=== PATIENT | female | born 1935 | race Caucasian/White ===

== ENCOUNTER 2018-05-27 01:55 | Observation (INO) ==
[2018-05-27] MEDS ORDERED: ASPIRIN ONE (02:10)
--- NOTE | 2018-05-27 02:50 | PROVIDER DOCUMENTATION ---
HPI-Chest Pain - General Chief Complaint: Chest Pain Stated Complaint: CHEST PAIN/LEFT ARM PAIN/SOB Time Seen by Provider: 05/27/18 01:58 Source: patient Allergies/Adverse Reactions: Patient Allergies Allergy/AdvReac Type Severity Reaction Status Date / Time No Known Allergies Allergy Verified 05/20/18 12:19 - History of Present Illness-CP Nature of Presenting Problem: Patient is a 83 year old white female with history of emphysema complaining of left sided chest pressure and left arm pain after awakening from sleep at 1230 am. Currently chest pain free but continues to have left arm discomfort. Followed by Dr. Sims Chest Pain Radiation: reports: other (left arm) Quality of Pain: reports: pressure Severity in ED: moderate Onset/Duration: abrupt Timing: gone now Context/Activities at Onset: reports: none, rest, sleep Modifying Factors: improves with: nothing Associated Symptoms: reports: shortness of breath Nitro Today/Relief: no nitro taken today Aspirin Treatment Today: no aspirin today Prior Chest Pain/Cardiac Workup: reports: non-cardiac Similar Symptoms Previously?: Yes Recently Seen Here or By Another Healthcare Provider: No Review of Systems - Adult - REVIEW OF SYSTEMS - ADULT Constitutional: denies: chills, fever Eyes: reports: no symptoms reported Ears, Nose, Mouth & Throat: reports: no symptoms reported Cardiovascular: reports: see HPI, chest pain Respiratory: reports: no symptoms reported Gastrointestinal: reports: no symptoms reported Musculoskeletal: reports: no symptoms reported Integumentary: reports: no symptoms reported Neurological: reports: no symptoms reported Endocrine: reports: no symptoms reported Hematologic/Lymphatic: reports: no symptoms reported Allergic/Immunologic: reports: no symptoms reported All Other Systems: Reviewed and Negative Past History - Adult - PAST MEDICAL HISTORY-ADULT Review of Records: reports: Old Records Reviewed, Nursing Assessment Review, Medications Reviewed, Social history reviewed & non-contributory. Major Childhood Illnesses: reports: denies history Cardiovascular: reports: hyperlipidemia Respiratory: reports: denies history Gastrointestinal: reports: denies history Obstetrical/Gynecological: reports: denies history Genitourinary: reports: denies history Musculoskeletal: reports: denies history Neurological: reports: denies history Psychiatric: reports: denies history Endocrine/Immune: reports: thyroid disorder Other Conditions: reports: denies history - PRIOR SURGERIES/PROCEDURES Surgical/Procedure History: reports: orthopedic (extremity), joint replacement (Right hip) - FAMILY HISTORY Family History: reviewed, not pertinent Physical Exam-General - CONSTITUTIONAL General Appearance: alert, no apparent distress, other (nondiaphoretic) - EYES Eyes: other (clear) - HEAD, EARS, NOSE, MOUTH & THROAT HENMT: normocephalic/atraumatic, moist mucous membranes - NECK Neck: non-tender, full range of motion, supple - RESPIRATORY Respiratory: chest non-tender, lungs clear, normal breath sounds - CARDIOVASCULAR Cardiovascular: regular rate, rhythm - GASTROINTESTINAL (ABDOMEN) Abdominal Exam: normal bowel sounds, non tender, soft - LYMPHATIC Lymphatic: no adenopathy - MUSCULOSKELETAL Back Exam: normal inspection, no CVA tenderness Extremity: normal range of motion, non-tender Peripheral Pulses: radial (R): 2+, radial (L): 2+ - SKIN Integumentary: normal color, normal turgor - PSYCHIATRIC Psych/Mental Status: normal thought content, anxious - HEART Score HEART Score: History: Slightly Suspicious HEART Score: ECG: Normal HEART Score: Age: > or = 65 Years HEART Score: Risk Factors for Atherosclerotic Disease: > or = 3 Risk Factors or History of Atherosclerotic Disease HEART Score: Troponin: < or = Normal Limit Total HEART Score:: 4 Progress - PLAN OF CARE/RESULTS Progress/Plan/Lab Results: Vital Signs - 8 hr 05/27/18 02:05 05/27/18 02:07 05/27/18 02:10 Temperature Pulse Rate Respiratory Rate Blood Pressure 112/63 O2 Sat by Pulse Oximetry 94 L 96 96 05/27/18 02:14 Temperature 98.2 F Pulse Rate 62 Respiratory Rate 20 Blood Pressure 112/63 O2 Sat by Pulse Oximetry 95 Laboratory Results - last 24 hr 05/27/18 05/27/18 05/27/18 02:05 02:05 02:05 WBC 5.59 RBC 4.33 Hgb 12.3 Hct 37.9 MCV 87.5 MCH 28.4 MCHC 32.5 L RDW Std Deviation 14.2 Plt Count 185 MPV 10.7 H Immature Gran % (Auto) 0.0 Neut % (Auto) 41.5 L Lymph % (Auto) 42.8 Howell % (Auto) 8.4 Eos % (Auto) 6.4 Baso % (Auto) 0.9 H Immature Gran # (Auto) 0.00 Neut # (Auto) 2.32 Lymph # (Auto) 2.39 Howell # (Auto) 0.47 Eos # (Auto) 0.36 Baso # (Auto) 0.05 Sodium 144 Potassium 3.9 Chloride 106 Carbon Dioxide 27 Anion Gap 11 BUN 19 Creatinine 0.6 Estimated GFR/1.73 m2 > 60 BUN/Creatinine Ratio 32 Glucose 89 Calculated Osmolality 289 Calcium 9.1 Creatine Kinase 127 Troponin T < 0.010 05/27/18 05/27/18 05:12 05:12 WBC RBC Hgb Hct MCV MCH MCHC RDW Std Deviation Plt Count MPV Immature Gran % (Auto) Neut % (Auto) Lymph % (Auto) Howell % (Auto) Eos % (Auto) Baso % (Auto) Immature Gran # (Auto) Neut # (Auto) Lymph # (Auto) Howell # (Auto) Eos # (Auto) Baso # (Auto) Sodium Potassium Chloride Carbon Dioxide Anion Gap BUN Creatinine Estimated GFR/1.73 m2 BUN/Creatinine Ratio Glucose Calculated Osmolality Calcium Creatine Kinase 109 Troponin T < 0.010 Orders Category Date Time Status Admit - [facility] Routine AdmDCTranf 05/27/18 07:36 Active Cardiac Monitoring DIRECTED Care 05/27/18 02:08 Active Notify MD if DIRECTED Care 05/27/18 07:36 Active Nursing- MD Consult Request ROUTINE Care 05/27/18 06:05 Active Nursing- MD Consult Request ROUTINE Care 05/27/18 06:08 Active Saline Loc DIRECTED Care 05/27/18 07:36 Active Update & Confirm Home Medicati ROUTINE Care 05/27/18 07:35 Active Vital Signs Order Q 4-HR ASSESS Care 05/27/18 07:36 Active Z-Document. for Tele Applied ORDERED Care 05/27/18 07:36 Active Physician/Provider Consults Routine Cons 05/27/18 06:08 Ordered NPO Diet 05/27/18 07:34 Active CHEST-PORTABLE [RAD] Stat Exams 05/27/18 02:05 Completed BMP [BASIC METABOLIC PANEL] [CHEM] Stat Lab 05/27/18 02:05 Completed CBC WITH ELECTRONIC DIFF [HEME] Stat Lab 05/27/18 02:05 Completed CK PROFILE [SP CHEM] Q8HR Lab 05/27/18 13:00 Uncollected CK PROFILE [SP CHEM] Q8HR Lab 05/27/18 21:00 Uncollected CK PROFILE [SP CHEM] Stat Lab 05/27/18 02:05 Completed CK PROFILE [SP CHEM] Stat Lab 05/27/18 05:12 Completed TROPONIN T Q8HR Lab 05/27/18 13:00 Uncollected TROPONIN T Q8HR Lab 05/27/18 21:00 Uncollected TROPONIN T Stat Lab 05/27/18 02:05 Completed TROPONIN T Stat Lab 05/27/18 05:12 Completed Aspirin Med 05/27/18 02:10 Discontinued 325 mg .ROUTE .STK-MED ONE Aspirin Med 05/27/18 04:04 Discontinued 325 mg PO NOW ONE Oxygen Device Routine Oth 05/27/18 07:36 Active Telemetry [OM.EQ] Routine Oth 05/27/18 07:36 Active EKG [EKG] Stat Ther 05/27/18 01:58 Draft EKG [EKG] Stat Ther 05/27/18 06:03 Draft Transfer/Admit Order [TRANSFER] Routine Transfer 05/27/18 07:33 Ordered paged hospitalist, Dr. Lyle, at 0615 Result Diagrams: 05/27/18 02:05 05/27/18 02:05 - REASSESSMENT Reassessment #1 Time Reassessed: 06:00 Status: unchanged Reassessment Comment: continues to have left arm pain, repeat EKG ordered, paged general cargo clerk on Reassessment #2 Time Reassessed: 08:07 Status: other (I did not see this patient. Hospitalist Romeo SELLERS saw this patient and wrote orders before I had a chance to evaluate her) - EKG 1 Time of EKG reading by physician:: 02:05 EKG Read and Signed by:: David Holly Rate: 62 Rhythm: NSR [place]: normal [place] Interval: normal Comments: no STEMI 2 Time of EKG reading by physician:: 06:15 EKG Read and Signed by:: David Holly Rate: 57 Rhythm: sinus britt Prior EKG Comparison: unchanged from prior - CONSULTS/PCP/HOSPITALIST Notification #1 *Consult/PCP/Hospitalist*: Dr. Sims, general cargo clerk Time Discussed: 06:15 Reason/Comments: recommend observation and stress test Consult Disposition: Admit #2 Consult: Emperatriz Lyle Time Discussed: 06:30 Reason/Comments: request that we give report to oncoming hospitalist - CHANGE OF SHIFT REPORT (ED Provider) 1 Report Given and Care Transferred to:: Dr. Hutton Time of Transfer: 07:00 Items Pending: Physician Consult/Arrival (contact hospitalist coming on for day shift for admission) Departure - Departure Date of Disposition Decision: 05/27/18 Time of Disposition Decision: 08:07 DIAGNOSIS: Chest pain Qualifiers: Chest pain type: unspecified Qualified Code(s): R07.9 - Chest pain, unspecified Disposition: ADMITTED INPATIENT 09 Certified Medical Emergency: Emergent Condition: Stable Referrals and Follow-Ups: Kaleb Mckenzie MD [Primary Care Provider] - - Critical Care Note This patient required my direct & personal management of CC.: No Attestation - Physician/ REFUGIO Attestation Patient care was provided by Advanced Practice Provider:: No The physician spent face to face time with patient:: Yes Advanced Practice Provider documentation review:: Supervising physician onsite and consulted in the evaluation and care of this patient. The physician did have a face to face encounter with the patient.
[2018-05-27 03:42] LABS: BASO# 0.05 X1000 (0.0-0.2); BASO% 0.9 % (0.0-0.8); EOS# 0.36 X1000 (0.0-0.7); EOS% 6.4 % (0.0-10.0); HEMATOCRIT 37.9 % (37.0-47.0); HEMOGLOBIN 12.3 g/dL (12.0-16.0); LYMPH# 2.39 X1000 (1.2-3.4); LYMPH% 42.8 % (20.5-51.1); MCH 28.4 PG (27-31); MCHC 32.5 g/dL (33-37); MCV 87.5 FL (81-99); MONO# 0.47 X1000 (0.11-0.59); MONO% 8.4 % (1.7-9.3); MPV 10.7 FL (7.4-10.4); NEUT# 2.32 X1000 (1.4-6.5); NEUT% 41.5 % (42.2-75.2); PLT 185 X1000 (130-400); RBC 4.33 XMIL (4.2-5.4); RDW 14.2 % (11.5-14.5); WBC 5.59 X1000 (4.8-10.8)
[2018-05-27 04:03] LABS: AGAP 11; BUN 19 mg/dL (8-22); CALCIUM 9.1 mg/dL (8.8-10.2); CHLORIDE 106 mmol/L (98-107); CK PROFILE 127 U/L (24-173); COSMO 289; CREATININE 0.6 mg/dL (0.5-0.9); ESTIMATED GFR > 60; GLUCOSE 89 mg/dL (70-104); POTASSIUM 3.9 mmol/L (3.5-5.1); SODIUM 144 mmol/L (136-145); TCO2 27 mmol/L (25-35)
[2018-05-27] MEDS ORDERED: ASPIRIN PO ONE (04:04)
--- NOTE | 2018-05-27 06:10 | Diag Imaging Result Doc PS360 ---
EXAM: CHEST-PORTABLE HISTORY: cp TECHNIQUE: Chest single view COMPARISON: 03/20/2013 FINDINGS: The lungs are hyperexpanded. The heart is not enlarged. The vessels are small. There are no infiltrates. No effusion identified. IMPRESSION: Emphysema Electronically signed by Iron Dukes 05/27/2018 6:07 AM
--- NOTE | 2018-05-27 07:17 | EKG Report ---
Test Performed on : 05/27/2018 02:04:17 AM Test Reason : SDA Blood Pressure : / mmHG Vent. Rate : 062 BPM Atrial Rate : 062 BPM P-R Int : 186 ms QRS Dur : 112 ms QT Int : 456 ms P-R-T Axes : 086 -03 078 degrees QTc Int : 462 ms Normal sinus rhythm. Septal infarct , age undetermined Abnormal ECG When compared with ECG of 18-JUN-2008 12:29, Septal infarct is now present Unconfirmed Result
--- NOTE | 2018-05-27 07:18 | EKG Report ---
Test Performed on : 05/27/2018 06:14:54 AM Test Reason : pain Blood Pressure : / mmHG Vent. Rate : 057 BPM Atrial Rate : 057 BPM P-R Int : 164 ms QRS Dur : 106 ms QT Int : 456 ms P-R-T Axes : 058 -12 076 degrees QTc Int : 443 ms Sinus bradycardia. Septal infarct (cited on or before 23-DEC-2007) Abnormal ECG When compared with ECG of 27-MAY-2018 02:04, (Unconfirmed) No significant change was found Unconfirmed Result
[2018-05-27 10:41] LABS: INR 0.94; PROTIME 13.4 Seconds (11.0-16.0)
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
[2018-05-27 12:05] LABS: FREE T4 1.41 ng/dL (0.93-1.70); TSH 1.49 uIUmL (0.27-4.20)
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
[2018-05-27] MEDS ORDERED: LEXISCAN ONE (13:09)
[2018-05-27] MEDS: TYLENOL PO PRN ×2 (14:18→20:23)
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
[2018-05-27 17:44] LABS: URINE SOURCE CLEAN CATCH
[2018-05-27 18:03] LABS: BILIRUBIN URINE NEGATIVE (NEGATIVE); BLOOD URINE NEGATIVE (NEGATIVE); COLOR YELLOW; GLUCOSE URINE NEGATIVE (NEGATIVE); KETONE URINE NEGATIVE (NEGATIVE); LEUKOCYTES URINE SMALL (NEGATIVE); NITRITE URINE NEGATIVE (NEGATIVE); PH URINE 6.5; PROTEIN URINE NEGATIVE (NEGATIVE); SP GRAVITY URINE 1.006; TURBIDITY URINE CLEAR (CLEAR); UROBILINOGEN URINE NORMAL (NORMAL)
[2018-05-27 18:05] LABS: UR EPITHELIAL CELLS <10 /HPF (<10); URINE BACTERIA NEGATIVE /HPF; URINE RBC <10 /HPF (<10); URINE WBC <10 /HPF (<10)
--- NOTE | 2018-05-27 19:27 | ECHO REPORT ---
ORDER DATE: 05/27/2018 INDICATION: Chest pain, abnormal EKG. M-MODE MEASUREMENTS: Left ventricle end diastole: 3.6. Left ventricle end systole: 2.2. Posterior wall: 0.9. Interventricular septum: 0.8. Left atrium: 2.8. Aortic diameter: 2.7. SUMMARY OF 2-DIMENSIONAL IMAGIN. Left ventricular function is normal. Ejection fraction is 67%. No wall motion abnormality noted. 2. The aortic valve has 3 cusps. They open normally. Color flow mapping unremarkable. 3. The tricuspid valve shows mild to moderate degree of regurgitation. Pulmonary systolic pressure estimated at 29 mmHg. 4. The pulmonic valve is normal. Color flow mapping indicates a mild degree of regurgitation. 5. The mitral valve is normal. Color flow mapping unremarkable. 6. Pulsed wave Doppler of mitral inflow shows normal E/A ratio. 7. Tissue Doppler of septal and lateral mitral annulus averages 6.5 cm. There is no diastolic dysfunction. 8. Pulmonary venous flow is normal. There is a puff of mitral regurgitation. 9. There is no pericardial effusion. No masses, no thrombus. 10.The right-sided chambers appeared to be unremarkable. Clinical correlation recommended. cc: MD Alon Robert CRNP
[2018-05-28] MEDS: TYLENOL PO PRN ×2 (02:40→09:14)
[2018-05-28 07:12] LABS: HEMATOCRIT 37.9 % (37.0-47.0); HEMOGLOBIN 12.5 g/dL (12.0-16.0); MCH 28.9 PG (27-31); MCV 87.7 FL (81-99); MPV 10.8 FL (7.4-10.4); RBC 4.32 XMIL (4.2-5.4); RDW 14.3 % (11.5-14.5); WBC 5.26 X1000 (4.8-10.8)
[2018-05-28 07:36] LABS: AGAP 10; BUN 17 mg/dL (8-22); CALCIUM 8.8 mg/dL (8.8-10.2); CHLORIDE 109 mmol/L (98-107); COSMO 290; CREATININE 0.7 mg/dL (0.5-0.9); ESTIMATED GFR > 60; GLUCOSE 86 mg/dL (70-104); POTASSIUM 3.6 mmol/L (3.5-5.1); SODIUM 145 mmol/L (136-145); TCO2 26 mmol/L (25-35)
[2018-05-28 07:47] VITALS: BP 115/72
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
== END 2018-05-28 12:26 | disposition home or self-care (01) ==
LOC: 3N 01:55 → ED 01:55 → 3N 13:48
PROVIDERS: ATTEND Internal Medicine
CPT/HCPCS: 71010; 71045; 73030; 78452; 80048; 81001; 82550; 84439; 84443; 84484; 85025; 85027; 85610; 87088; 93005; 93017; 93306; 99285; A9270; A9500; J2785

== ENCOUNTER 2018-12-06 04:31 | Inpatient (IN) ==
--- NOTE | 2018-11-23 08:21 | EKG Report ---
Test Performed on : 11/23/2018 08:14:59 AM Test Reason : PAT Blood Pressure : / mmHG Vent. Rate : 059 BPM Atrial Rate : 059 BPM P-R Int : 190 ms QRS Dur : 110 ms QT Int : 450 ms P-R-T Axes : 081 -13 079 degrees QTc Int : 445 ms Sinus bradycardia. with premature atrial complexes. Possible Septal infarct (cited on or before 23-DEC-2007) Abnormal ECG When compared with ECG of 27-MAY-2018 06:14, premature atrial complexes. are now present Confirmed by Alea ZARAGOZA, Tony Schofield ([id number]) on 11/23/2018 5:22:34 PM
[2018-11-23 08:42] LABS: URINE SOURCE CLEAN CATCH
[2018-11-23 08:49] LABS: BASO# 0.03 X1000 (0.0-0.2); BASO% 0.6 % (0.0-0.8); EOS# 0.33 X1000 (0.0-0.7); EOS% 6.8 % (0.0-10.0); HEMATOCRIT 36.9 % (37.0-47.0); HEMOGLOBIN 12.3 g/dL (12.0-16.0); LYMPH# 1.74 X1000 (1.2-3.4); LYMPH% 35.9 % (20.5-51.1); MCH 29.1 PG (27-31); MCHC 33.3 g/dL (33-37); MCV 87.4 FL (81-99); MONO# 0.49 X1000 (0.11-0.59); MONO% 10.1 % (1.7-9.3); MPV 10.1 FL (7.4-10.4); NEUT# 2.26 X1000 (1.4-6.5); NEUT% 46.6 % (42.2-75.2); PLT 179 X1000 (130-400); RBC 4.22 XMIL (4.2-5.4); RDW 14.4 % (11.5-14.5); WBC 4.85 X1000 (4.8-10.8)
[2018-11-23 08:54] LABS: BILIRUBIN URINE NEGATIVE (NEGATIVE); BLOOD URINE NEGATIVE (NEGATIVE); COLOR YELLOW; GLUCOSE URINE NEGATIVE (NEGATIVE); KETONE URINE NEGATIVE (NEGATIVE); LEUKOCYTES URINE NEGATIVE (NEGATIVE); NITRITE URINE NEGATIVE (NEGATIVE); PROTEIN URINE NEGATIVE (NEGATIVE); SP GRAVITY URINE 1.019; TURBIDITY URINE CLEAR (CLEAR); UROBILINOGEN URINE NORMAL (NORMAL)
[2018-11-23 08:55] LABS: INR 1.03; PROTIME 13.7 Seconds (11.0-16.0); UR EPITHELIAL CELLS <10 /HPF (<10); URINE BACTERIA NEGATIVE /HPF; URINE RBC <10 /HPF (<10); URINE WBC <10 /HPF (<10)
[2018-11-23 08:56] LABS: PTT 29.4 Seconds (22.3-41.8)
[2018-11-23 08:59] LABS: HEMOGLOBIN A1C 5.8 % (4.8-6.0)
[2018-11-23 09:10] LABS: CALCIUM 9.2 mg/dL (8.8-10.2); CREATININE 1.1 mg/dL (0.5-0.9); POTASSIUM 4.3 mmol/L (3.5-5.1)
[2018-12-06] MEDS ORDERED: REGLAN ONE (06:05)
[2018-12-06] MEDS ORDERED: COLACE ONE (06:05)
[2018-12-06] MEDS ORDERED: PEPCID ONE (06:05)
[2018-12-06] MEDS ORDERED: LR 1,000 ML ONE (06:06)
[2018-12-06] MEDS ORDERED: LYRICA ONE (06:06)
[2018-12-06] MEDS ORDERED: KEFZOL 1 GM/D5W 1 GM/50 ML IVPB ONE (06:06)
[2018-12-06] MEDS ORDERED: CELEBREX ONE (06:06)
[2018-12-06] MEDS ORDERED: DIPRIVAN 1% 500 MG/50 ML BOTTLE ONE (06:28)
[2018-12-06] MEDS ORDERED: MARCAINE 0.25% PF ONE (06:35)
[2018-12-06] MEDS ORDERED: DURAMORPH ONE (06:35)
[2018-12-06] MEDS ORDERED: TORADOL ONE (06:35)
[2018-12-06] MEDS ORDERED: SODIUM CHLORIDE 0.9% ONE (06:36)
[2018-12-06] MEDS ORDERED: VANCOMYCIN ONE (06:36)
[2018-12-06] MEDS ORDERED: CYKLOKAPRON 1,000 MG/NS 2,000 MG/200 ML IVPB ONE (06:37)
[2018-12-06] MEDS ORDERED: XYLOCAINE-MPF 2% ONE (06:41)
[2018-12-06] MEDS ORDERED: VERSED ONE (06:42)
[2018-12-06] MEDS ORDERED: NEOSPORIN G.U. IRRIGANT ONE (06:43)
[2018-12-06] MEDS ORDERED: FENTANYL ONE (06:43)
[2018-12-06] MEDS ORDERED: EXPAREL 1.3% ONE (06:43)
[2018-12-06] MEDS ORDERED: DECADRON ONE (06:45)
[2018-12-06] MEDS ORDERED: EPHEDRINE ONE (07:17)
[2018-12-06] MEDS ORDERED: SODIUM CHLORIDE 0.9% 10 ML ONE (07:17)
[2018-12-06] MEDS ORDERED: OFIRMEV 1000 MG/ISOTONIC SOLN 1,000 MG/100 ML BOTTLE ONE (07:30)
[2018-12-06] MEDS ORDERED: ZOFRAN ONE (07:49)
[2018-12-06 08:01] LABS: URINE SOURCE CATH
[2018-12-06 08:13] LABS: BILIRUBIN URINE NEGATIVE (NEGATIVE); BLOOD URINE NEGATIVE (NEGATIVE); COLOR YELLOW; GLUCOSE URINE NEGATIVE (NEGATIVE); KETONE URINE NEGATIVE (NEGATIVE); LEUKOCYTES URINE NEGATIVE (NEGATIVE); NITRITE URINE NEGATIVE (NEGATIVE); PH URINE 5.5; PROTEIN URINE NEGATIVE (NEGATIVE); SP GRAVITY URINE 1.014; TURBIDITY URINE CLEAR (CLEAR); UROBILINOGEN URINE NORMAL (NORMAL)
[2018-12-06 08:14] LABS: UR EPITHELIAL CELLS <10 /HPF (<10); URINE BACTERIA NEGATIVE /HPF; URINE RBC <10 /HPF (<10); URINE WBC <10 /HPF (<10)
[2018-12-06] MEDS ORDERED: NS 1,000 ML ONE (09:10)
[2018-12-06] MEDS ORDERED: OXY IR PO PRN (09:30)
[2018-12-06] MEDS ORDERED: MORPHINE IV PRN ×3 (09:30)
--- NOTE | 2018-12-06 10:03 | Diag Imaging Result Doc PS360 ---
EXAM: KNEE 1-2 VIEWS-LEFT 12/06/2018 HISTORY: Post left total knee TECHNIQUE: Left knee portable two views COMMENT: There is a total knee arthroplasty. There is no evidence of acute bony disease otherwise. IMPRESSION: Postsurgical changes. Electronically signed by Real Hamilton 12/06/2018 10:01 AM
[2018-12-06] MEDS ORDERED: ZOFRAN ODT PO PRN (10:14)
--- NOTE | 2018-12-06 10:50 | OPERATIVE NOTE ---
PROCEDURE DATE : 12/06/2018 PREOPERATIVE DIAGNOSIS: Degenerative joint disease, left knee. POSTOPERATIVE DIAGNOSIS: Degenerative joint disease, left knee. PROCEDURE: Left total knee replacement. SURGEON: Dylon Soto MD. PYTHON JAVA DEVELOPER: VERITO Betancourt. Mr. Cornell was necessary for proper retraction and manipulation of the leg during the case. ANESTHESIA: Spinal. COMPLICATION: None. PROCEDURE IN DETAIL: This 83-year-old female presents for a left knee replacement. Risks, benefits, and no guarantees were discussed, and she is willing to proceed. She was taken to the operating room and satisfactory anesthesia obtained. The left leg was prepped and draped in the usual sterile fashion. A time-out was taken to confirm operative site, procedure, and patient. The leg was wrapped with an Esmarch and tourniquet inflated to 300 mmHg. A midline incision was made over the front of the knee followed by a quadriceps-tendon sparing arthrotomy. The patella was everted and resurfaced with freehand technique. With the patella subluxed laterally, the knee was flexed and an intramedullary hole made in the distal femur and the distal femoral cutting block secured in 5 degrees of valgus. Distal femoral resection was made and the femur sized to a DePuy Attune size 6 implant. The 4-in-1 block was secured and the anterior, posterior, and chamfer cuts sequentially made. Care was taken to preserve the PCL. The knee was flexed and PCL retractor placed behind the PCL and tibia to protect the neurovascular bundle and PCL. Tibial cutting block was aligned with extramedullary alignment and the tibial resection made. Flexion and extension gaps were equal with a 6 mm spacer. The tibia was sized to a size 6 tibial tray. A trial reduction was performed with 6 standard width left cruciate-retaining femoral component and a 6 tibial tray and a 10 mm trial polyethylene with good range of motion and stability. The patella was sized to a 35 medialized dome patella. The drill holes were placed for the patellar implant and femoral implant and the trial components removed. The bony surfaces were thoroughly irrigated with pulsatile lavage. Cement with 1 g of vancomycin was utilized to cement a DePuy Attune size 6 rotating platform base plate, a size 6 left cruciate-retaining femoral component, and a 35 medialized dome patella. Excess cement was removed with a [place] elevator. While the cement cured, the joint capsule was injected with Exparel for pain management and a Hemovac drain placed. After curing the cement, a 10 mm CR polyethylene was inserted in the tibial tray and the knee reduced. Final range of motion was 0-130 degrees of flexion with midline patella tracking. The arthrotomy was copiously irrigated with irrigant. It was closed over the drain with #1 Vicryl in the arthrotomy, 2-0 Vicryl in the subcutaneous, and skin praful on the skin edges. Sterile dressings completed the closure and the patient was recovered from anesthesia and transferred to the recovery room in stable condition. No intraoperative complications were noted. Instrument count and sponge count was correct at the time of closure. cc: Dylon Soto MD
[2018-12-06] MEDS: OXY IR PO PRN (13:03)
[2018-12-06] MEDS: NS 1,000 ML IV SCH ×2 (13:06→21:19)
--- NOTE | 2018-12-06 15:36 | ORTHOPAEDICS PROGRESS NOTE ---
DATE: 12/06/2018 SUBJECTIVE DATA: Ms. Bradshaw seen on postop day 0 of her left total knee arthroplasty. She reports she is doing well at this time. She states she does have some numbness and tingling still at left lower extremity. She states she has not been up with physical therapy at this time. OBJECTIVE DATA: There is good pedal pulses in left lower extremity. The bandage is clean and dry. There is negative Homans sign. Vital signs have been stable. Urinalysis is negative. ASSESSMENT: Degenerative joint disease left knee with left total knee arthroplasty. PLAN: Will plan on keeping Ms Bradshaw in hospital for few days to keep an eye on her and also get her ready for discharge to rehab on Wednesday. Will begin working on that now. We will check back on her tomorrow. Dictated by VERITO Betancourt for Dylon Soto MD cc: VERITO Betancourt MD
[2018-12-06] MEDS: TYLENOL PO SCH ×2 (16:56→21:18)
[2018-12-06] MEDS: ULTRAM PO SCH ×2 (16:56→21:16)
[2018-12-06] MEDS: KEFZOL 1 GM/D5W 1 GM/50 ML IVPB IV SCH (16:57)
[2018-12-06] MEDS ORDERED: SINGULAIR PO PRN (18:41)
[2018-12-06] MEDS ORDERED: COLACE PO SCH (21:00)
[2018-12-06] MEDS: PERIDEX MT SCH (21:14)
[2018-12-06] MEDS: CELEBREX PO SCH (21:15)
[2018-12-06] MEDS: CITRACAL + D PO SCH (21:16)
[2018-12-06] MEDS: FISH OIL CONCENTRATE PO SCH (21:17)
[2018-12-06] MEDS: PRAVACHOL PO SCH (21:17)
[2018-12-06] MEDS: THERA M PLUS PO SCH (21:17)
[2018-12-07] MEDS: KEFZOL 1 GM/D5W 1 GM/50 ML IVPB IV SCH (00:12)
[2018-12-07] MEDS: OXY IR PO PRN (01:31)
[2018-12-07] MEDS: COLACE PO SCH ×3 (02:46→21:02)
[2018-12-07] MEDS: ULTRAM PO SCH ×2 (03:53→08:35)
[2018-12-07] MEDS: TYLENOL PO SCH ×4 (03:54→21:03)
[2018-12-07] MEDS ORDERED: NS 500 ML IV ONE ×2 (06:21→10:56)
[2018-12-07 06:32] LABS: HEMATOCRIT 27.6 % (37.0-47.0); HEMOGLOBIN 9.1 g/dL (12.0-16.0)
[2018-12-07] MEDS ORDERED: PRILOSEC PO SCH (07:00)
[2018-12-07 07:13] LABS: AGAP 9; BUN 14 mg/dL (8-22); CALCIUM 7.4 mg/dL (8.8-10.2); CHLORIDE 103 mmol/L (98-107); COSMO 276; CREATININE 0.6 mg/dL (0.5-0.9); ESTIMATED GFR > 60; GLUCOSE 92 mg/dL (70-104); POTASSIUM 4.5 mmol/L (3.5-5.1); SODIUM 138 mmol/L (136-145); TCO2 26 mmol/L (25-35)
[2018-12-07] MEDS: SYNTHROID PO SCH (08:34)
[2018-12-07] MEDS: CELEBREX PO SCH (08:34)
[2018-12-07] MEDS: CITRACAL + D PO SCH ×2 (08:34→21:03)
[2018-12-07] MEDS: FISH OIL CONCENTRATE PO SCH ×2 (08:34→21:02)
[2018-12-07] MEDS: ASPIRIN PO SCH (08:35)
[2018-12-07] MEDS: THERA M PLUS PO SCH ×2 (08:35→21:03)
[2018-12-07] MEDS: PERIDEX MT SCH ×2 (08:42→21:02)
[2018-12-07] MEDS ORDERED: PEPCID PO SCH (09:00)
--- NOTE | 2018-12-07 09:39 | Diag Imaging Result Doc PS360 ---
EXAM: CHEST-1 VIEW HISTORY: REHAB TECHNIQUE: Portable chest COMPARISON: 05/27/2018 FINDINGS: The lungs are well expanded except for minimal atelectasis in the left base. The heart is not enlarged. The vessels are not distended. There are no infiltrates. No effusion identified. Mild scoliosis. IMPRESSION: Left basilar atelectasis Electronically signed by Iron Dukes 12/07/2018 9:36 AM
[2018-12-07] MEDS ORDERED: PRILOSEC PO ONE (11:26)
[2018-12-07] MEDS: NS 1,000 ML IV SCH ×2 (11:57→15:03)
[2018-12-07] MEDS: ZOFRAN IV PRN (13:26)
--- NOTE | 2018-12-07 14:45 | EKG Report ---
Test Performed on : 12/07/2018 2:33:15 PM Test Reason : hypotension Blood Pressure : / mmHG Vent. Rate : 054 BPM Atrial Rate : 054 BPM P-R Int : 176 ms QRS Dur : 118 ms QT Int : 500 ms P-R-T Axes : 093 031 077 degrees QTc Int : 474 ms Sinus bradycardia. Low voltage QRS Cannot rule out Anterior infarct (cited on or before 23-DEC-2007) Abnormal ECG When compared with ECG of 23-NOV-2018 08:14, premature atrial complexes. are no longer present Confirmed by Alea ZARAGOZA, Tony Schofield ([id number]) on 12/07/2018 10:37:17 PM
--- NOTE | 2018-12-07 14:47 | CONSULTATION ---
DATE OF CONSULTATION: 12/07/2018 CONSULTING PHYSICIAN: Dr. Soto. CHIEF COMPLAINT: Low blood pressures. HISTORY OF PRESENT ILLNESS: Ms. Bradshaw is a pleasant, 83-year-old, female with a past medical history of hypothyroidism, hyperlipidemia, TIA multiple years ago, who was admitted on 12/06/2018 and underwent a left total knee with Dr. Soto. The patient has had some blood pressures running in the low 70s to low 90s since around midnight, reason for consultation. She was given a 500 L bolus and started on IV fluids without much change in her blood pressure. She does report some dizziness and nausea when she was up working with physical therapy. Her hemoglobin and hematocrit from 11/23/2018 were 12 and 36. This a.m., she was down to 9 and 27. Given her being symptomatic, we will go ahead and give her 1 unit of packed red blood cells. Manual blood pressure was 87/51. We will recheck her hemoglobin and hematocrit after her unit of blood, and we will escalate down some her pain medication as well. PAST MEDICAL HISTORY: 1. Hypothyroidism. 2. Hyperlipidemia. 3. History of TIAs. PAST SURGICAL HISTORY: 1. Hip arthroplasty x2 on the right. 2. Left total knee. SOCIAL HISTORY: She quit smoking 40 years ago. No tobacco, alcohol, or illicit drug use. FAMILY HISTORY: No coronary artery disease that she is aware of. REVIEW OF SYSTEMS: Completely negative except for those mentioned in the HPI. It was positive for some nausea and dizziness. No chest pain. No associated shortness of breath. ALLERGIES: No known drug allergies. HOME MEDICATIONS: 1. Aspirin. 2. Pravastatin. 3. Fish oil. 4. Vitamin D3. 5. Colace. 6. Multivitamin. 7. Meloxicam. 8. Prilosec. 9. Singulair. 10. Synthroid. LABORATORY DATA: Hemoglobin and hematocrit 9 and 27. Sodium 138, potassium 4.5, BUN 14, creatinine 0.6. DIAGNOSTICS: Chest x-ray, left basilar atelectasis. PHYSICAL EXAMINATION: Vital Signs: Temperature is 98.2 degrees, heart rate 56, manual blood pressure was 87/51, O2 saturation is 94% on room air. General: Ms. Bradshaw is a pleasant, 83- year-old, female who is sitting up in the bed, in no acute distress. HEENT: Atraumatic, normocephalic. PERRL. Neck: Supple. Trachea midline. Cardiovascular: S1 and S2 appreciated. No murmurs, gallops, or rubs noted. Respiratory: Lung sounds clear bilaterally. GI: Soft, nontender, nondistended. Positive bowel sounds in 4 quadrants. Extremities: Lower extremities, bilateral pedal pulses are palpable. Skin: She does have a left knee incision that is currently covered with gauze. I did not appreciate any oozing or hematoma. Neurologic: No focal deficits noted. ASSESSMENT AND PLAN: 1. Hypotension secondary to acute blood loss anemia. We will give her 1 unit of blood. The patient was having some issues with dizziness and nausea. We will recheck her hemoglobin and hematocrit. Continue to follow her blood pressures closely. 2. Hypothyroidism. Continue Synthroid. 3. Hyperlipidemia. Continue statin. 4. History of transient ischemic attack multiple years ago. Aware. 5. Further recommendation to follow physician evaluation, laboratory and diagnostic data. Dictated by VERITO Grissom for Wilfred Quintero MD cc: MD Dylon Mccarthy MD
[2018-12-07 14:54] LABS: HEMOGLOBIN 9.9 g/dL (12.0-16.0)
[2018-12-07 15:46] LABS: CK INDEX 0.9 (0.0-2.5); CK-MB 2.19 ng/mL (0.0-5.0)
--- NOTE | 2018-12-07 20:51 | ORTHOPAEDICS PROGRESS NOTE ---
DATE: 12/07/2018 SUBJECTIVE DATA: Ms Bradshaw is on postoperative day 1 of her left total knee arthroplasty. She reports she did get up and walk to the door with physical therapy without much difficulty. She did state she got somewhat dizzy with going from sitting to standing. OBJECTIVE DATA: At the left lower extremity, there are good pedal pulses. There is good capillary refill in toes. There is negative Homans sign. The bandages are clean and dry. The patient can dorsiflex and plantar flex the foot without difficulty. There is good sensation. ASSESSMENT: 1. Degenerative joint disease, left knee, with left total knee arthroplasty. 2. Dizziness with hypotension. PLAN: We will go ahead and get the hospitalist consulted to come check on her due to her dizziness and hypotension after surgery. We will get her drain removed today and change her bandages. I will come back to check on her in the morning to see how she is doing. Dictated by VERITO Betancourt for Dylon Soto MD cc: VERITO Betancourt MD [facility], [facility]
[2018-12-07] MEDS: PRAVACHOL PO SCH (21:03)
--- NOTE | 2018-12-07 21:47 | CONSULTATION ---
DATE OF CONSULTATION: 12/07/2018 This is an 83-year-old female who is here for an elective right knee arthroplasty, who developed postoperative hypotension with blood pressure somewhere in the 70s and 80s. She has been on IV fluids. She got actually 2 L of fluid and seems to be better. Her hemoglobin and hematocrit have dropped somewhat to levels of 9 and 27. Her baseline hemoglobin and hematocrit were 12 and 36, and that was preop. Her exam is really unremarkable. PROBLEM LIST: Transient hypotension, likely iatrogenic, possibly some dehydration. Pain medication. We will stop everything that can lower blood pressure until her blood pressure stabilizes. Continue hydration and follow closely. At this point, just need to make sure she does not have any other major issues there. Check electrocardiogram and cardiac enzymes. If still not improved after hydration, we may need to further analyze with echocardiogram to make sure there is no further bleeding. This is a [id number] encounter note with Daiana Ruiz. cc: Wilfred Quintero MD
[2018-12-08] MEDS: NS 1,000 ML IV SCH ×2 (01:29→11:31)
[2018-12-08] MEDS: TYLENOL PO SCH ×4 (03:26→21:37)
[2018-12-08] MEDS: ZOFRAN IV PRN ×2 (03:26→21:37)
[2018-12-08 06:12] LABS: BASO# 0.02 X1000 (0.0-0.2); BASO% 0.2 % (0.0-0.8); EOS% 1.2 % (0.0-10.0); HEMATOCRIT 32.1 % (37.0-47.0); HEMOGLOBIN 10.8 g/dL (12.0-16.0); IMM GRAN# 0.02 X1000 (0.0-0.04); IMM GRAN% 0.2 % (0.0-0.5); LYMPH# 1.33 X1000 (1.2-3.4); LYMPH% 16.5 % (20.5-51.1); MCH 28.9 PG (27-31); MCHC 33.6 g/dL (33-37); MCV 85.8 FL (81-99); MONO# 0.71 X1000 (0.11-0.59); MONO% 8.8 % (1.7-9.3); MPV 10.5 FL (7.4-10.4); NEUT# 5.89 X1000 (1.4-6.5); NEUT% 73.1 % (42.2-75.2); PLT 151 X1000 (130-400); RBC 3.74 XMIL (4.2-5.4); RDW 14.4 % (11.5-14.5); WBC 8.07 X1000 (4.8-10.8)
[2018-12-08 06:34] LABS: ESTIMATED GFR > 60
[2018-12-08 06:38] LABS: AGAP 7; BUN 14 mg/dL (8-22); CHLORIDE 100 mmol/L (98-107); COSMO 261; CREATININE 0.6 mg/dL (0.5-0.9); GLUCOSE 88 mg/dL (70-104); SODIUM 130 mmol/L (136-145); TCO2 23 mmol/L (25-35)
[2018-12-08] MEDS: SYNTHROID PO SCH (06:44)
[2018-12-08] MEDS: PRILOSEC PO SCH (06:44)
[2018-12-08] MEDS ORDERED: CALCIUM GLUCONATE 1 GM in NS 50 ML IV ONE (06:53)
[2018-12-08] MEDS: TORADOL IV PRN ×3 (09:44→21:37)
[2018-12-08] MEDS: FISH OIL CONCENTRATE PO SCH ×2 (11:37→21:37)
[2018-12-08] MEDS: ASPIRIN PO SCH (11:37)
[2018-12-08] MEDS: CITRACAL + D PO SCH ×3 (11:37→16:09)
[2018-12-08] MEDS: PERIDEX MT SCH ×2 (11:37→21:37)
[2018-12-08] MEDS: COLACE PO SCH ×2 (11:37→21:37)
[2018-12-08] MEDS: THERA M PLUS PO SCH ×2 (11:37→21:37)
[2018-12-08] MEDS ORDERED: SAMSCA PO ONE (12:22)
[2018-12-08] MEDS ORDERED: NS 1,000 ML IV SCH (13:02)
--- NOTE | 2018-12-08 13:37 | PROGRESS NOTE ---
DATE: 12/08/2018 SUBJECTIVE: The patient reports feeling fine. Denies any dizziness. OBJECTIVE: Vital Signs: Temperature 98.5 degrees, heart rate 59, respiratory rate 16, blood pressure 106/55, O2 saturation 94% on room air. General Examination: This is an 83-year-old, female lying in bed, in no acute distress. Cardiovascular Examination: S1 and S2 heard. No murmurs, gallops, or rubs. Regular rate and rhythm. Respiratory Examination: Clear bilaterally to auscultation. No work of breathing or using accessory muscles. Abdomen: Soft, nontender to palpation. Bowel sounds present. No organomegaly. Extremities: No clubbing, cyanosis, or edema. Peripheral pulses present in both legs. Skin: The patient has a left knee incision that is covered by gauze. No oozing or hematoma noted. Neurological Examination: The patient is alert and oriented x3. Moves 4 extremities. Laboratory Data: White cell count 8.07, hemoglobin 10.8, hematocrit 32.1, platelets 151,000. BMP stable except sodium 130 and calcium 7.0. ASSESSMENT AND PLAN: 1. Hypotension secondary to acute blood loss anemia. The patient has received 1 unit of blood and hemoglobin so far is 10.8 today. Blood pressure is also okay. Patient is having now blood pressure of 110s. The patient is still receiving 100 mL per hour of normal saline. I think, at this point, we will cut down to 50 and see how she does. If tomorrow, she is feeling better and blood pressure maintains above 100-110s, I think will stop fluids. 2. Hypothyroidism. We will continue with Synthroid. 3. Hyperlipidemia. We will continue with statin. 4. Hyponatremia. We will provide 1 dose of Samsca. 5. Hypocalcemia. We will provide calcium gluconate. Also, the patient is on calcium citrate plus vitamin D 2 tablets by mouth daily. We are going to increase it to 3 tablets by mouth daily. 6. Disposition. At this point, the patient is definitely getting better. We will continue to monitor. cc: MD Wilfred Morataya MD
--- NOTE | 2018-12-08 18:51 | ORTHOPAEDICS PROGRESS NOTE ---
DATE: 12/08/2018 SUBJECTIVE DATA: Ms. Bradshaw is seen postop day 2 of her left total knee arthroplasty. She reports she is doing much better today. She is having decreased dizziness and lightheadedness. She reports she did have 1 episode of nausea and vomiting earlier in the day. She states that this has since then resolved. OBJECTIVE DATA: There is good sensation left lower extremity. The bandage is clean and dry. There is negative Homans sign. There is no active drainage. There is good capillary refill in the toes. There is good sensation. Vital signs have been improving along with a low blood pressure. Temperature 98.1 degrees, respiratory rate 14, blood pressure 111/50, oxygen saturation 93% on room air. LABS: Have been improving as well. Hemoglobin is 10.8, hematocrit 32.1. ASSESSMENT: Degenerative joint disease, left knee with left total knee arthroplasty, hypotension with nausea. PLAN: We planned to keep Ms. Bradshaw 1 more night. We will likely get her discharged to rehab tomorrow if everything is going well. She has received 2 units of blood per the hospitalist's group. She states much improved. We will check back on her tomorrow and likely discharge her to therapy. Dictated by VERITO Betancourt for Dylon Soto MD cc: VERITO Betancourt MD [facility]ot, MD
[2018-12-08] MEDS: PRAVACHOL PO SCH (21:36)
[2018-12-09] MEDS: TYLENOL PO SCH ×2 (03:24→10:31)
[2018-12-09] MEDS: PRILOSEC PO SCH (06:15)
[2018-12-09] MEDS: SYNTHROID PO SCH (06:16)
[2018-12-09 06:52] LABS: BASO# 0.02 X1000 (0.0-0.2); BASO% 0.3 % (0.0-0.8); EOS% 2.9 % (0.0-10.0); HEMATOCRIT 31.6 % (37.0-47.0); HEMOGLOBIN 10.7 g/dL (12.0-16.0); LYMPH# 1.08 X1000 (1.2-3.4); LYMPH% 15.5 % (20.5-51.1); MCHC 33.9 g/dL (33-37); MCV 85.6 FL (81-99); MONO# 0.62 X1000 (0.11-0.59); MONO% 8.9 % (1.7-9.3); MPV 10.7 FL (7.4-10.4); NEUT# 5.06 X1000 (1.4-6.5); NEUT% 72.4 % (42.2-75.2); PLT 179 X1000 (130-400); RBC 3.69 XMIL (4.2-5.4); RDW 14.3 % (11.5-14.5); WBC 6.98 X1000 (4.8-10.8)
[2018-12-09 07:08] LABS: AGAP 9; BUN 9 mg/dL (8-22); CALCIUM 8.1 mg/dL (8.8-10.2); CHLORIDE 104 mmol/L (98-107); COSMO 274; CREATININE 0.5 mg/dL (0.5-0.9); ESTIMATED GFR > 60; GLUCOSE 87 mg/dL (70-104); POTASSIUM 3.8 mmol/L (3.5-5.1); SODIUM 138 mmol/L (136-145); TCO2 25 mmol/L (25-35)
[2018-12-09 07:48] VITALS: BP 119/65
--- NOTE | 2018-12-09 08:11 | DISCHARGE SUMMARY ---
ADMISSION DATE: 12/06/2018 DISCHARGE DATE: 12/09/2018 ADMITTING DIAGNOSIS: Degenerative joint disease, left knee. DISCHARGE DIAGNOSIS: Degenerative joint disease, left knee, along with hypotension, and anemia. PRINCIPAL PROCEDURE: Left total knee arthroplasty. PAST MEDICAL HISTORY: Includes osteoarthritis, hypothyroidism, GERD, hyperlipidemia. DISCHARGE MEDICATIONS: Include [place] 10 for pain, aspirin 325 mg daily for DVT prophylaxis, Zofran as needed for nausea, doxycycline for infection prevention. We have also given her a trial of iron to see if we can get her blood levels up. ALLERGIES: There are no known drug allergies. HOSPITAL COURSE: The patient was taken to the operating room on 12/06/2018 and left total knee arthroplasty was performed. She tolerated this well. She was transferred to the recovery room and did well. She was transferred to the surgical floor and did relatively well the first day. The second day she started developing some nausea and some hypotension. We then gave her some fluids, totalling about 2000 mL of IV fluids and some nausea medicine without much improvement. We consulted the hospitalist to check on the patient, make sure nothing else was going on, and they recommended giving her 2 units of blood, which we did. She did improve since the 2 units of blood and her blood pressure stabilized. She has been walking well with physical therapy since and had less nausea. Her incision remained clean, dry, and intact during hospital course. There is no pain with calf squeeze. There is good sensation. She is felt ready to be discharged to rehab on 12/09/2018. DISPOSITION: She is going to be discharged to rehab. FOLLOWUP: She is to follow up with Dr. Soto in about 2 weeks for recheck. DISCHARGE INSTRUCTIONS: To rehab at this time with a physical therapy program there. She is to call with any questions or concerns. Dictated by VERITO Betancourt for Dylon Soto MD cc: VERITO Betancourt MD [facility], [facility]
[2018-12-09] MEDS: ASPIRIN PO SCH (10:28)
[2018-12-09] MEDS: CITRACAL + D PO SCH (10:28)
[2018-12-09] MEDS: PERIDEX MT SCH (10:28)
[2018-12-09] MEDS: THERA M PLUS PO SCH (10:29)
[2018-12-09] MEDS: COLACE PO SCH (10:30)
[2018-12-09] MEDS: FISH OIL CONCENTRATE PO SCH (10:30)
--- NOTE | 2018-12-09 12:48 | PROGRESS NOTE ---
DATE: 12/09/2018 SUBJECTIVE: Patient reports feeling fine. Denies any dizziness. OBJECTIVE: Vital Signs: Temperature 97.8 degrees, heart rate 67, respiratory rate 16, blood pressure 119/65. O2 saturation 95% on 1 L nasal cannula. General: This is an 83-year-old female lying in bed, in no acute distress. Cardiovascular: S1, S2 heard. No murmurs, gallops, or rubs. Regular rate and rhythm. Respiratory: Clear bilaterally to auscultation. No work of breathing or using accessory muscles. Abdomen: Soft, nontender to palpation. Bowel sounds present. No organomegaly. Extremities: No clubbing, cyanosis, or edema. Peripheral pulses present in both legs. The patient has a left knee covered by dressing. Neurological: Patient alert oriented x3. Moves 4 extremities. LABORATORY DATA: Reviewed. ASSESSMENT AND PLAN: 1. Hypotension secondary to acute blood loss anemia. Hemoglobin is definitely much better after transfusion. Blood pressure is okay. We have reduced the IV fluids during the last 24 hours to 50 mL/h which is really a tiny amount of fluid. Blood pressure has been in the range of 100-110 I think at this point, that condition is resolved. I think we can stop IV fluids. 2. Hypothyroidism. We will continue with Synthroid. 3. Hyperlipidemia. We will continue with the statin. 4. Hyponatremia. Resolved. 5. Hypocalcemia. Potassium is much better. Today it is 8.1. We will recommend to continue with calcium citrate daily. DISPOSITION: I think this patient is medically stable. I think this patient is going to be discharged today. We appreciate the opportunity to participate in the care of this patient. cc: MD Wilfred Morataya MD [facility]
== END 2018-12-09 11:53 | DRG 470 ==
LOC: SUATTDRO 04:31 → SURHOLD 04:31 → 4N 08:06
PROVIDERS: ADMIT Internal Medicine; ATTEND Internal Medicine

== ENCOUNTER 2018-12-30 21:14 | Inpatient (IN) ==
--- NOTE | 2018-12-30 21:54 | PROVIDER DOCUMENTATION ---
HPI-Abdominal Pain/GI Problem - General Chief Complaint: Diarrhea Stated Complaint: ABD PAIN/D Time Seen by Provider: 12/30/18 21:38 Source: patient Allergies/Adverse Reactions: Patient Allergies Allergy/AdvReac Type Severity Reaction Status Date / Time No Known Allergies Allergy Verified 11/22/18 10:05 Home Medications: Home Medication List Medication Instructions Recorded Confirmed Last Taken Type Calcium Citrate/Vitamin D3 1 ea PO BID 05/27/18 11/22/18 12/05/18 21:00 History [Citracal + D Maximum Caplet] Docusate Sodium [Colace] 100 mg PO BID 05/27/18 11/22/18 12/05/18 21:00 History Levothyroxine [Synthroid] 100 microgm PO QAM 05/27/18 11/22/18 12/05/18 08:00 History Omeprazole [Prilosec] 20 mg PO QAM 05/27/18 11/22/18 12/05/18 08:00 History Meloxicam 15 mg PO DAILY 05/28/18 11/22/18 12/05/18 08:00 History Aspirin [Aspir-Low] 81 mg PO QHS 11/22/18 11/22/18 11/29/18 08:00 History Montelukast Sodium [Singulair] 10 mg PO DAILY PRN 11/22/18 11/22/18 12/05/18 08:00 History Multivitamin with Minerals [Hair, 1 dose PO BID 11/22/18 11/22/18 12/05/18 21:00 History Skin & Nails] Phytosterol/Vit D3/Fish Oil 1 dose PO BID 11/22/18 11/22/18 12/05/18 21:00 History [Cholesterol Relief Softgel] Pravastatin Sodium 20 mg PO QHS 11/22/18 11/22/18 12/05/18 21:00 History Aspirin 325 mg PO DAILY #30 tab 12/09/18 Unknown Rx Doxycycline 100 mg PO BID #20 tab 12/09/18 Unknown Rx Ferrous Sulfate 325 mg PO DAILY #30 tab 12/09/18 Unknown Rx Hydrocodone/Acetaminophen [[place] 1 ea PO Q4H PRN #30 tab 12/09/18 Unknown Rx 10-325 Tablet] Ondansetron HCl [Zofran] 4 mg PO Q6H PRN #20 tab 12/09/18 Unknown Rx - History of Present Illness-ABD Nature of Presenting Problems: 83 YO F pmh for constipation with recent left knee replacement surgery and d/c from rehab on today presents with abdominal pain and constipation for the past 4 days. She states she did have some liquid diarrhea today, which was black, but she had been taking iron 2/2 to blood loss from her surgery. She has associated nausea but no vomiting. Pt states poor appetite and weight loss of 5lbs since being in rehab. Abdominal Pain Onset Location: reports: generalized abdomen Pain Radiation: reports: no radiation Quality of Pain: reports: cramping, fullness Severity in ED: reports: moderate Onset/Duration: reports: this morning Timing: reports: still present Activities at Onset: reports: none Exposure to sick contacts?: No Modifying Factors: improves with: nothing Last BM: this evening Dark Stools Present?: reports: black Rectal Bleeding: reports: none Rectal Pain: reports: known hemorrhoids Review of Systems - Adult - REVIEW OF SYSTEMS - ADULT Constitutional: denies: chills, fever Eyes: reports: no symptoms reported Ears, Nose, Mouth & Throat: reports: no symptoms reported Cardiovascular: denies: chest pain, edema Respiratory: denies: cough, shortness of breath Gastrointestinal: reports: see HPI, diarrhea, nausea. denies: vomiting Genitourinary: denies: dysuria, flank pain, hematuria Musculoskeletal: reports: no symptoms reported Integumentary: reports: no symptoms reported Neurological: reports: no symptoms reported Endocrine: reports: no symptoms reported Hematologic/Lymphatic: reports: no symptoms reported Past History - Adult - PAST MEDICAL HISTORY-ADULT Review of Records: reports: Old Records Reviewed, Social history reviewed & non-contributory. Major Childhood Illnesses: reports: denies history Cardiovascular: reports: hyperlipidemia Respiratory: reports: denies history Gastrointestinal: reports: denies history Obstetrical/Gynecological: reports: denies history Genitourinary: reports: denies history Musculoskeletal: reports: denies history Neurological: reports: denies history Psychiatric: reports: denies history Endocrine/Immune: reports: thyroid disorder Other Conditions: reports: denies history - PRIOR SURGERIES/PROCEDURES Surgical/Procedure History: reports: orthopedic (extremity), joint replacement (Right hip) - IMMUNIZATION STATUS Childhood Immunizations: See Nurse Assessment Flu Vaccine: See Nurse Assessment - FAMILY HISTORY Family History: reviewed, not pertinent - SOCIAL HISTORY Smoking: denies Substance Use: denies Physical Exam-General - PHYSICAL EXAM-ADULT Initial Vital Signs Reviewed: Yes - CONSTITUTIONAL General Appearance: alert, thin - EYES Eyes: PERRL/EOMI, other (dry mucous membranes) - HEAD, EARS, NOSE, MOUTH & THROAT HENMT: normocephalic/atraumatic - NECK Neck: supple - RESPIRATORY Respiratory: lungs clear, normal breath sounds - CARDIOVASCULAR Cardiovascular: regular rate, rhythm, systolic murmur - GASTROINTESTINAL (ABDOMEN) Abdominal Exam: soft. negative: distended, guarding, rigid, hernia, mass - MUSCULOSKELETAL Back Exam: negative: no CVA tenderness Extremity: non-tender, no pedal edema - SKIN Integumentary: normal color, normal turgor, warm/dry - NEUROLOGIC Neurologic: grossly normal - PSYCHIATRIC Psych/Mental Status: normal mood/affect, oriented x 3 Progress - PLAN OF CARE/RESULTS Progress/Plan/Lab Results: Vital Signs - 8 hr 12/30/18 21:29 Temperature 97.6 F Pulse Rate 82 Respiratory Rate 16 Blood Pressure 97/65 O2 Sat by Pulse Oximetry 94 L Result Diagrams: 12/30/18 22:05 12/30/18 22:05 - REASSESSMENT Reassessment #1 Time Reassessed: 23:27 Status: unchanged (no air fluid levels seen on xray. pt states belly still painful. will try for bentyl. labs ok, mild anemia, improved from previous on last month, mildly elevated wbc. pt states she did not have a bowel movement in 4 days, and may have overcompensated by taking too much laxative.) Reassessment #2 Time Reassessed: 01:36 Status: improving (pt states her abdominal pain is better with the bentyl. still has rectal pain from hemorrhoids.) - CONSULTS/PCP/HOSPITALIST Notification #1 *Consult/PCP/Hospitalist*: Dr. Chase Time Discussed: 01:36 Consult Disposition: Will see in ED, Admit Departure - Departure Date of Disposition Decision: 12/30/18 Time of Disposition Decision: 23:29 DIAGNOSIS: Diarrhea, Hyponatremia, Diarrhea due to drug Disposition: ADMITTED INPATIENT 09 Certified Medical Emergency: Emergent Condition: Stable Referrals and Follow-Ups: Kaleb Mckenzie MD [Primary Care Provider] - - Critical Care Note This patient required my direct & personal management of CC.: No Attestation - Physician/ REFUGIO Attestation The physician spent face to face time with patient:: Yes Advanced Practice Provider documentation review:: Supervising physician onsite and consulted in the evaluation and care of this patient. The physician did have a face to face encounter with the patient.
[2018-12-30] MEDS ORDERED: ZOFRAN IM ONE (21:58)
[2018-12-30] MEDS ORDERED: NS 1,000 ML IV ONE (21:59)
[2018-12-30 22:15] LABS: BASO# 0.02 X1000 (0.0-0.2); BASO% 0.1 % (0.0-0.8); EOS# 0.01 X1000 (0.0-0.7); EOS% 0.1 % (0.0-10.0); HEMATOCRIT 34.3 % (37.0-47.0); HEMOGLOBIN 11.3 g/dL (12.0-16.0); IMM GRAN# 0.02 X1000 (0.0-0.04); IMM GRAN% 0.1 % (0.0-0.5); LYMPH# 0.95 X1000 (1.2-3.4); LYMPH% 6.4 % (20.5-51.1); MCH 28.5 PG (27-31); MCHC 32.9 g/dL (33-37); MCV 86.4 FL (81-99); MONO# 1.04 X1000 (0.11-0.59); MPV 10.2 FL (7.4-10.4); NEUT# 12.81 X1000 (1.4-6.5); NEUT% 86.3 % (42.2-75.2); PLT 280 X1000 (130-400); RBC 3.97 XMIL (4.2-5.4); RDW 13.6 % (11.5-14.5); WBC 14.85 X1000 (4.8-10.8)
[2018-12-30 22:30] LABS: AGAP 11; ALBUMIN 3.9 g/dL (3.5-5.0); ALKALINE PHOSPHATASE 63 U/L (32-104); BUN 16 mg/dL (8-22); CALCIUM 8.8 mg/dL (8.8-10.2); CHLORIDE 96 mmol/L (98-107); COSMO 267; CREATININE 0.6 mg/dL (0.5-0.9); ESTIMATED GFR > 60; GLUCOSE 152 mg/dL (70-104); GOT 23 U/L (10-30); GPT 13 U/L (10-36); POTASSIUM 3.9 mmol/L (3.5-5.1); SODIUM 131 mmol/L (136-145); TCO2 24 mmol/L (25-35); TOTAL BILIRUBIN 0.33 mg/dL (0.20-1.00); TOTAL PROTEIN 5.9 g/dL (6.3-8.3)
[2018-12-30] MEDS ORDERED: BENTYL PO ONE (23:26)
[2018-12-31 00:57] LABS: URINE SOURCE CLEAN CATCH
[2018-12-31 01:00] LABS: BILIRUBIN URINE NEGATIVE (NEGATIVE); BLOOD URINE TRACE (NEGATIVE); COLOR YELLOW; GLUCOSE URINE NEGATIVE (NEGATIVE); KETONE URINE 10 mg/dL (NEGATIVE); LEUKOCYTES URINE MODERATE (NEGATIVE); NITRITE URINE NEGATIVE (NEGATIVE); PROTEIN URINE NEGATIVE (NEGATIVE); SP GRAVITY URINE 1.006; TURBIDITY URINE CLEAR (CLEAR); UROBILINOGEN URINE NORMAL (NORMAL)
[2018-12-31 01:01] LABS: UR EPITHELIAL CELLS <10 /HPF (<10); URINE BACTERIA NEGATIVE /HPF; URINE WBC <10 /HPF (<10)
[2018-12-31] MEDS ORDERED: NS 1,000 ML IV ONE (01:24)
[2018-12-31] MEDS ORDERED: G.I. COCKTAIL PO ONE (01:29)
[2018-12-31] MEDS ORDERED: TYLENOL PO PRN (02:56)
[2018-12-31] MEDS ORDERED: ZOFRAN IV PRN (02:56)
[2018-12-31] MEDS: LOVENOX SUBQ SCH (05:18)
--- NOTE | 2018-12-31 07:38 | Diag Imaging Result Doc PS360 ---
EXAM: FLAT/UPRIGHT ABD/1 VIEW CHEST INDICATION: abd pain TECHNIQUE: 3 views COMPARISON: 12/07/2018 FINDINGS: There is increased stool in the rectum which may indicate a mild rectal fecal impaction. There is no obstructive bowel pattern. There is no evidence of large volume free abdominal gas. There is lumbar spondylosis. The lungs are grossly clear. There is no discrete pleural fluid collection or pneumothorax. The cardiomediastinal silhouette and central vasculature are grossly unremarkable. IMPRESSION: Possible mild rectal fecal impaction. Electronically signed by Dylon Marie 12/31/2018 7:36 AM
[2018-12-31] MEDS: PRILOSEC PO SCH (08:41)
--- NOTE | 2018-12-31 11:42 | PROGRESS NOTE ---
DATE: 12/31/2018 SUBJECTIVE: She came in yesterday apparently complaining of diarrhea. She says she was constipated for about 4 days and I think she took things for constipation and had diarrhea. She is complaining of hemorrhoid discomfort as well. PAST MEDICAL HISTORY: History of hyperlipidemia, really no other significant history I can see. PAST SURGICAL HISTORY: Orthopedic right hip replacement. OBJECTIVE: Today she is pretty tired, she was sleeping comfortably, breathing comfortably. I woke her up, easy to arouse. Vital signs: Temperature 99.2 degrees, pulse 70, respirations 18, blood pressure 93/48. Pupils are equal round. Lungs are clear in all lung bright. Cardiovascular: Regular rhythm and rate without murmur or S3. Abdomen is soft. Skin is warm and dry. LABORATORY DATA: When she presented, white count [id number], hematocrit 34, hemoglobin 11, platelet count 280,000. Sodium 131, potassium 3.9, chloride 96, BUN 16, creatinine 0.6. AST 23, ALT 13, alkaline phos 83. Urinalysis unremarkable. IMAGING: Abdominal x-ray, possible rectal impaction. ASSESSMENT AND PLAN: Constipation, rectal impaction, hemorrhoids which are bothering her. We will put her on some Anusol cream and it looks like we need to check stool for Clostridium difficile. She is on a healthy heart diet at this time. cc: Ariel Butcher MD
[2018-12-31] MEDS: ANUSOL-HC CREAM PR SCH ×2 (15:44→20:44)
[2018-12-31] MEDS ORDERED: CALMOSEPTINE OINTMENT TOP PRN (15:44)
[2019-01-01] MEDS: LOVENOX SUBQ SCH (04:52)
[2019-01-01 06:31] LABS: BASO# 0.03 X1000 (0.0-0.2); BASO% 0.3 % (0.0-0.8); EOS# 0.41 X1000 (0.0-0.7); HEMATOCRIT 33.6 % (37.0-47.0); HEMOGLOBIN 10.7 g/dL (12.0-16.0); IMM GRAN# 0.02 X1000 (0.0-0.04); IMM GRAN% 0.2 % (0.0-0.5); LYMPH# 1.72 X1000 (1.2-3.4); LYMPH% 16.8 % (20.5-51.1); MCH 28.2 PG (27-31); MCHC 31.8 g/dL (33-37); MCV 88.7 FL (81-99); MONO# 0.86 X1000 (0.11-0.59); MONO% 8.4 % (1.7-9.3); MPV 10.6 FL (7.4-10.4); NEUT# 7.17 X1000 (1.4-6.5); NEUT% 70.3 % (42.2-75.2); PLT 267 X1000 (130-400); RBC 3.79 XMIL (4.2-5.4); RDW 14.4 % (11.5-14.5); WBC 10.21 X1000 (4.8-10.8)
[2019-01-01 06:51] LABS: AGAP 12; BUN 9 mg/dL (8-22); CALCIUM 7.8 mg/dL (8.8-10.2); CHLORIDE 104 mmol/L (98-107); COSMO 280; CREATININE 0.6 mg/dL (0.5-0.9); ESTIMATED GFR > 60; GLUCOSE 98 mg/dL (70-104); POTASSIUM 3.7 mmol/L (3.5-5.1); SODIUM 141 mmol/L (136-145); TCO2 25 mmol/L (25-35)
--- NOTE | 2019-01-01 07:59 | HISTORY AND PHYSICAL ---
CHIEF COMPLAINT: Abdominal pain and diarrhea. HISTORY OF PRESENT ILLNESS: This is an 83-year-old female who stated that she was having constipation for around 3 days after a recent left knee surgery. She was discharged from rehab on the day prior to her arrival. She stated that she took some medication to help her go to the bathroom and has had liquid diarrhea today. She stated that she had also received some iron infusion, and she noted that her stool was black. She is having no vomiting and mild nausea. Abdominal x-ray did not show any type of bowel obstruction. She will be admitted in observation status for further evaluation and treatment. PAST MEDICAL HISTORY: Hypothyroidism, hyperlipidemia, history of TIAs. PREVIOUS SURGICAL HISTORY: Hip arthroplasty x 2 on the right, left total knee. SOCIAL HISTORY: Quit smoking 40 years ago, no alcohol or tobacco at this time or illicit drugs. FAMILY HISTORY: No history of coronary artery disease that she is aware of. ALLERGIES: No known drug allergies. HOME MEDICATIONS: Aspirin 325 mg p.o. daily, Calcitrol Plus D 1 p.o. b.i.d., Colace 100 mg p.o. b.i.d., [place] 10 q 4 p.r.n., Synthroid 100 mcg p.o. daily, multivitamin daily, Cholesterol Relief softgel 1 p.o. b.i.d., pravastatin 20 mg p.o. q bedtime. REVIEW OF SYSTEMS: A 14-point review of systems was conducted with the patient, and pertinent positives are listed in the above HPI. All other systems reviewed and found to be negative. PHYSICAL EXAMINATION: VITAL SIGNS: Temperature 97.6, pulse 76, respirations 14, blood pressure 100/56, oxygen saturation 96% on room air. GENERAL: A pleasant 83-year-old female lying on the ER stretcher. She answers all questions appropriately. She is alert and oriented x3. HEENT: Head is atraumatic and normocephalic. Pupils are equal, round and reactive to light. Extraocular eye movements intact. Sclerae nonicteric. Conjunctivae are mildly pale. Oral mucosa is dry and tacky. NECK: Supple. No JVD. No thyromegaly. Trachea is midline. No cervical lymphadenopathy. CARDIAC: S1 and S2 appreciated. A 2/6 systolic ejection murmur. No gallops, no rubs. LUNGS: Clear to auscultation bilaterally. No rhonchi, wheezes or rales. Symmetric rise and fall with respirations. ABDOMEN: Soft, nondistended and diffusely tender to palpation. Bowel sounds normoactive. No pulsatile mass or organomegaly. EXTREMITIES: No clubbing, cyanosis or edema. DIAGNOSTIC DATA: Abdominal x-ray: No air fluid levels. Consistent with small bowel obstruction noted. LABORATORY DATA: WBC 14.85, hemoglobin 11.3, hematocrit 43.3, platelet count 280,000, sodium 131, potassium 3.9, chloride 96, carbon dioxide 24, BUN 16, creatinine 0.6, glucose 152. ASSESSMENT AND PLAN: 1. Diarrhea. I believe this is related to the patient having constipation and taking too many laxatives. Will continue to monitor, give normal saline at 75 mL an hour. 2. Fluid volume depletion. See above. 3. Hypothyroidism. Check TSH and continue Synthroid. 4. Leukocytosis. This is likely reactive. Recheck laboratory data. 5. Hyperglycemia. Does not have a diagnosis of diabetes mellitus. Will monitor. Further recommendations based on clinical course. Dictated by VERITO Dhaliwal for Jose Chase MD I have performed a face to face diagnostic evaluation. Labs/ Xrays- reviewed. Exam- Chest- clear, CV- regular, Abd- soft. A/P- Diarrhea, dehydration. - Admit, IV fluids, supportive care. Dr.James Lemus#: [id number] cc: VERITO Dhaliwal MD [facility]
[2019-01-01] MEDS: ASPIRIN PO SCH (08:55)
[2019-01-01] MEDS: THERA M PLUS PO SCH ×3 (08:55→21:23)
[2019-01-01] MEDS: CITRACAL + D PO SCH ×3 (08:55→21:22)
[2019-01-01] MEDS: SYNTHROID PO SCH (08:55)
[2019-01-01] MEDS: PRILOSEC PO SCH (08:55)
[2019-01-01] MEDS: ANUSOL-HC CREAM PR SCH ×2 (08:56→20:39)
[2019-01-01] MEDS ORDERED: GOLYTELY PO ONE (13:03)
--- NOTE | 2019-01-01 13:24 | PROGRESS NOTE ---
DATE: 01/01/2019 Ms. Bradshaw is still uncomfortable. She is eating regular food. She has had a couple of bowel movements. She has not had loose stools. Her bottom is very sore from hemorrhoids, but it still seems to be more of a liquid stool. Temp 98.4 degrees, pulse 71, respirations 18, blood pressure 105/56. Pupils are equal and round. Lungs are clear in all lung bright. Cardiovascular regular rhythm and rate without murmur or S3. Urine output is 800 mL. ASSESSMENT AND PLAN: 1. Diarrhea, and this may be related to an impaction constipation and so we will get another flat and upright. We did one on the and positive mild rectal fecal impaction at that time in more of an obstructive bowel pattern. She is on regular diet. I will entertain giving her some Colyte in case this is a high impaction and try to clear her up a little bit. 2. Hemorrhoids, which are irritated. She is on Anusol HC cream and obviously the loose stools are irritating it as well. We will check an abdominal film and I am going to pursue giving her some Colyte. cc: Ariel Butcher MD
--- NOTE | 2019-01-01 14:37 | Diag Imaging Result Doc PS360 ---
EXAM: KUB ABDOMEN INDICATION: constipation?, High impaction? TECHNIQUE: One view COMPARISON: 12/30/2018 FINDINGS: There appears to be decreased stool in the rectum as compared to the previous study. Nonspecific bowel gas patterns are again noted similar to the previous study. There is no definite obstructive pattern. There is no evidence of large volume free abdominal gas. The abdomen is grossly stable, otherwise. IMPRESSION: Decrease in the rectal stool burden. Stable abdomen, otherwise. Electronically signed by Dylon Marie 01/01/2019 2:35 PM
[2019-01-01] MEDS: PRAVACHOL PO SCH ×2 (20:39→21:22)
[2019-01-02] MEDS: SYNTHROID PO SCH (05:41)
[2019-01-02] MEDS: LOVENOX SUBQ SCH (05:41)
--- NOTE | 2019-01-02 09:44 | PROGRESS NOTE ---
DATE: 01/02/2019 SUBJECTIVE: Ms. Bradshaw does feel better. She has been taking the Colyte. She did not get much sleep, but had quite a bit of bowel activity. OBJECTIVE: Pulse 70, respirations 18, and blood pressure 102/53. HEENT: Pupils are equal and round. Lungs: Clear in all lung bright. Cardiovascular: Regular rhythm and rate without murmur or S3. Abdomen: Soft. Skin: Warm and dry. ASSESSMENT AND PLAN: 1. Abdominal x-ray from yesterday decreased stool in the rectum, but no definite obstructive pattern. We have given her Colyte. My thinking was she may have had a high impaction, and she seems to be feeling better. She is eating. We will start physical therapy, and hopefully she can go home possibly today. 2. Hemorrhoids. Continue Anusol cream. 3. History of hypothyroidism. cc: Ariel Butcher MD
[2019-01-02] MEDS: PRILOSEC PO SCH (10:49)
[2019-01-02] MEDS: THERA M PLUS PO SCH ×2 (10:49→21:10)
[2019-01-02] MEDS: CITRACAL + D PO SCH ×2 (10:49→21:10)
[2019-01-02] MEDS: ASPIRIN PO SCH (10:50)
[2019-01-02] MEDS: ANUSOL-HC CREAM PR SCH ×2 (10:50→22:54)
[2019-01-02] MEDS: PRAVACHOL PO SCH (21:10)
[2019-01-02] MEDS: MELATONIN PO PRN (21:10)
[2019-01-03] MEDS: LOVENOX SUBQ SCH (05:50)
[2019-01-03] MEDS: SYNTHROID PO SCH ×2 (06:10→06:43)
[2019-01-03] MEDS: CITRACAL + D PO SCH ×2 (09:54→21:41)
[2019-01-03] MEDS: PRILOSEC PO SCH (09:54)
[2019-01-03] MEDS: ASPIRIN PO SCH (09:54)
[2019-01-03] MEDS: ANUSOL-HC CREAM PR SCH ×2 (09:55→21:41)
[2019-01-03] MEDS: THERA M PLUS PO SCH ×2 (09:55→21:41)
[2019-01-03] MEDS ORDERED: TORADOL IV PRN (14:41)
--- NOTE | 2019-01-03 15:02 | PROGRESS NOTE ---
DATE: 01/03/2019 SUBJECTIVE: The patient is still having diarrhea, but reportedly she had retained stool based on her last films, but we have not gotten films in a couple days, but she has had about 5 or 6 bowel movements today. OBJECTIVE: Vital Signs: Blood pressure is 120/77, heart rate 54, respiratory rate 20, temperature 98.1 degrees satting 100% on room air. Cardiovascular: Regular rate and rhythm. Pulmonary: Bilateral breath sounds. Clear to auscultation. GI: Soft, nontender, nondistended. Bowel sounds are positive. LABORATORY DATA: White count is 10. I do not have any new data, and her last saturation was pretty much normal. PROBLEM LIST: 1. Fecal impaction, severe. Constipation. She has recently been in rehabilitation and she has been on narcotic pain medication, which she is no longer taking, but she is still having issues. 2. Hemorrhoids. She still has fairly significant hemorrhoids, and she is having pain associated with them. She is on Anusol and Proctofoam and recommended treatment there, but in any case, we are going to treat her symptomatically, and we will see how she does, but I anticipate we could discharge her soon once we know the impaction has resolved. I am not sure if the diarrhea is just kind of post impaction kind of diarrhea associated with relief of ileus associated with the impaction, but we will continue to monitor. I anticipate discharge soon. She will need to be on a bowel regimen, and we will continue to monitor closely. Anticipate discharge hopefully in the next 24 hours. cc: Wilfred Quintero MD
--- NOTE | 2019-01-03 15:09 | Diag Imaging Result Doc PS360 ---
ABDOMEN FLAT/UPRIGHT - 01/03/2019 INDICATION: pain COMPARISON: 01/01/2019 FINDINGS: There is a nonobstructive bowel gas pattern. No free air or abdominal calcifications. No constipation. IMPRESSION: Negative exam. Electronically signed by Tramaine Salazar 01/03/2019 3:07 PM
[2019-01-03] MEDS: PROCTOFOAM TOP SCH (21:41)
[2019-01-03] MEDS: MELATONIN PO PRN (21:41)
[2019-01-03] MEDS: PRAVACHOL PO SCH (21:41)
[2019-01-04] MEDS: LOVENOX SUBQ SCH (05:57)
[2019-01-04] MEDS: SYNTHROID PO SCH (06:01)
[2019-01-04 08:22] VITALS: BP 115/68
[2019-01-04] MEDS: PRILOSEC PO SCH (08:44)
[2019-01-04] MEDS: CITRACAL + D PO SCH (08:44)
[2019-01-04] MEDS: THERA M PLUS PO SCH (08:44)
[2019-01-04] MEDS: ASPIRIN PO SCH (08:44)
[2019-01-04] MEDS: ANUSOL-HC CREAM PR SCH (08:52)
[2019-01-04] MEDS: PROCTOFOAM TOP SCH (08:53)
[2019-01-04] MEDS ORDERED: MIRALAX PO SCH (09:00)
--- NOTE | 2019-01-04 14:13 | DISCHARGE SUMMARY ---
ADMISSION DATE: 01/01/2019 DISCHARGE DATE: 01/04/2019 DISCHARGE DIAGNOSIS: 1. Fecal impaction and chronic constipation with recent surgery. 2. External hemorrhoids. 3. Recent hip surgery. PROCEDURES: None. Briefly, this is an 83-year-old female, very pleasant. She had constipation for the last 3 days. She had recent left knee surgery. She had been on pain medication, having difficulty with constipation. Now she came in with diarrhea which was felt to be overuse of laxatives, but I am suspicious that she just had an impaction and her plain film showed that but she was given treatment and slowly improved. She did still have a little bit of diarrhea, but everything was negative. Stool culture was negative. Hemoccult was positive, but she had internal hemorrhoids. C. difficile assay was negative. She had a few white blood cells, no white count. No fever. She was tolerating p.o. without difficulty. Her plain films prior to discharge on the were negative. There was no further constipation. I think she may have had overflow diarrhea from her impaction and not truly infectious diarrhea, but in any case, she was stabilized and discharged home. Told to resume her MiraLAX and Colace once her diarrhea had resolved. DISCHARGE MEDICATIONS: Pravastatin 20, fish oil b.i.d., Caltrate b.i.d., Colace 100 b.i.d., multivitamin daily, Synthroid 100 daily, aspirin 325 daily, lactulose 30 daily, MiraLAX 17 g daily, [place] p.r.n., and pramoxine. DISCHARGE CONDITION: Stable. Refer to Dr. Mckenzie. May also consider referral to GI as an outpatient just for evaluation. She may need a colonoscopy at some point, which we will refer to Dr. Potts and Dr. Friedman. cc: Wilfred Quintero MD
[2019-01-04] MEDS ORDERED: FLU VACCINE IM ONE (14:51)
== END 2019-01-04 15:49 | disposition home or self-care (01) | DRG 389 ==
LOC: 3N 21:14 → ED 21:14 → SUATTDRO 12-31 01:55 → 3N 01-03 03:24
PROVIDERS: ATTEND Internal Medicine